=== PATIENT | male | born 2000 | race Caucasian/White ===

== ENCOUNTER 2019-12-18 05:00 | Emergency (ER) | payer SELFPAY ==
[2019-12-18] MEDS ORDERED: Sodium Chloride 0.9% 10 ML SDV IV PRN (05:12)
[2019-12-18] MEDS ORDERED: Sodium Chloride 0.9% 10 ML Syringe FLUSH PRN (05:12)
[2019-12-18] MEDS ORDERED: Sodium Chloride 0.9% 2.5 ML Syringe FLUSH PRN (05:12)
[2019-12-18] MEDS ORDERED: Lactated Ringers 1,000 ML IV ONE ×2 (05:20→06:13)
--- NOTE | 2019-12-18 05:33 | EDM.PDOC ---
ED HPI GENERAL MEDICAL PROBLEM - General Source of Information: Reports: Police History Limitations: Reports: Altered Mental Status <Luther Alexandre - Last Filed: 12/18/19 07:02> <Eliu Amaya - Last Filed: 12/18/19 07:35> - General Chief Complaint: General Stated Complaint: MED. CLEARANCE Time Seen by Provider: 12/18/19 05:03 - History of Present Illness INITIAL COMMENTS - FREE TEXT/NARRATIVE: This patient is a 19-year-old male with an unknown past medical history presenting with altered mental status. He presents to the emergency department in custody of law enforcement. Police state that they were called to a residence where the patient was found banging on the door of a residence that he did not live at He was unable to tell the police where he was or what he was doing so he was brought to the emergency department for medical clearance. Here in the emergency department, the patient exhibits slurred speech and denies any complaints but is disoriented and exhibits altered mental status. He is unable to participate in the HPI due to altered mental status. (Luther Alexandre) - Related Data Allergies Allergy/AdvReac Type Severity Reaction Status Date / Time Unable to Assess Allergy Unverified 12/18/19 05:11 Home Meds: Home Meds . [No Known Home Meds] 12/18/19 [History] Past Medical History - Past Health History Medical/Surgical History: Denies Medical/Surgical History (Unable to convey medical history due to altered mental status) <Luther Alexandre - Last Filed: 12/18/19 07:02> Social & Family History - Family History Family Medical History: Unobtainable <Luther Alexandre - Last Filed: 12/18/19 07:02> ED ROS GENERAL - Review of Systems Review Of Systems: Unable To Obtain Reason Not Obtained: Altered mental status <Luther Alexandre - Last Filed: 12/18/19 07:02> - Review of Systems Review Of Systems: See Below <Eliu Amaya - Last Filed: 12/18/19 07:35> - Physical Exam Exam: See Below Exam Limited By: Altered Mental Status General Appearance: Alert Eye Exam: Bilateral Eye: Normal Inspection, PERRL (Dilated at 6 mm bilaterally) Ears: Normal External Exam Nose: Normal Inspection, No Blood. No: Nasal Drainage Throat/Mouth: Normal Inspection Head Exam: Atraumatic, Normocephalic Neck: Supple Respiratory/Chest: No Respiratory Distress, No Accessory Muscle Use. No: Accessory Muscle Use Cardiovascular: No Edema, Tachycardia GI/Abdominal: No Distention (Male) Exam: Deferred Neuro Exam (Abbreviated): Alert, Confused, Disoriented, Abnormal Gait, Other ( Oriented to person only, not to place/time/event) Extremities: Normal Range of Motion Psychiatric: Other (Impulsive, exhibits poor judgment) Skin Exam: Warm, Dry <Luther Alexandre - Last Filed: 12/18/19 07:02> - Physical Exam Exam: See Below <Eliu Amaya - Last Filed: 12/18/19 07:35> EKG INTERPRETATION EKG Date: 12/18/19 Time: 05:15 Rhythm: NSR (Sinus tachycardia) Rate (Beats/Min): 143 [place]: Normal P-Wave: Present QRS: Normal ST-T: Other (TWI in III) QT: Normal Comparison: NA - No Prior EKG <Luther Alexandre - Last Filed: 12/18/19 07:02> Course <Luther Alexandre - Last Filed: 12/18/19 07:02> <Eliu Amaya - Last Filed: 12/18/19 07:35> - Vital Signs Text/Narrative:: 18-year-old male with altered mental status. Differential diagnosis includes but was not limited to alcohol intoxication, illicit drug use, head trauma, hypo -or hyperglycemia, sepsis, stroke, seizure/postictal state, electrolyte disturbance, infection, uremia, trauma, psychiatric disorder, etc. CBC shows erythrocytosis. Lactate is within normal limits, blood glucose is normal. Urine drug screen is positive for cocaine. Electrolytes are normal, mild renal insufficiency with a creatinine of 1.4. Hepatic markers are within normal limits. Troponin testing is negative. Blood alcohol level is 345 milligrams per deciliter. He was given 1 L of lactated Ringer's. 0558: Toxicology screen positive for ethanol and cocaine. Lactated Ringer's infusing. Patient still has resting tachycardia in the 130s. Will need further period of observation to ensure adequate clearance. 0641: Second bag of crystalloid infusing, still tachycardic with a heart rate in the 130s. 0700: Patient's mental status is slowly improving but he is still not oriented to place or event. Will need an additional period of time to be observed. Signed out in person to Dr. Amaya, the daytime physician. (Luther Alexandre) Last Recorded V/S: Last Vital Signs Temp 98.4 F 12/18/19 05:06 Pulse 136 H 12/18/19 06:50 Resp 21 H 12/18/19 06:50 BP 138/77 12/18/19 06:50 Pulse Ox 96 12/18/19 05:57 - Orders/Labs/Meds Orders: Active Orders 24 hr Category Date Time Status Blood Glucose Check, Bedside [] ONETIME Care 12/18/19 05:12 Active Cardiac Monitoring [] . DIRECTED Care 12/18/19 05:11 Active EKG 12 Lead [EKG Documentation Completion] [] STAT Care 12/18/19 05:12 Active Pulse Oximetry [] ASDIRECTED Care 12/18/19 05:11 Active Sodium Chloride 0.9% [Normal Saline] Med 12/18/19 05:12 Active 10 ml IV ASDIRECTED PRN Sodium Chloride 0.9% [Saline Flush] Med 12/18/19 05:12 Active 10 ml FLUSH ASDIRECTED PRN Sodium Chloride 0.9% [Saline Flush] Med 12/18/19 05:12 Active 2.5 ml FLUSH ASDIRECTED PRN Peripheral IV Insertion Adult [OM.PC] Stat Oth 12/18/19 05:12 Ordered Medication Orders Sodium Chloride (Saline Flush) 10 ml FLUSH ASDIRECTED PRN PRN Reason: Keep Vein Open Last Admin: 12/18/19 06:17 Dose: 10 ml Sodium Chloride (Saline Flush) 2.5 ml FLUSH ASDIRECTED PRN PRN Reason: Keep Vein Open Last Admin: 12/18/19 06:17 Dose: 2.5 ml Sodium Chloride (Normal Saline) 10 ml IV ASDIRECTED PRN PRN Reason: IV Use Labs: Laboratory Tests 12/18/19 12/18/19 12/18/19 Range/Units 05:25 05:25 05:25 WBC 8.02 (4.0-11.0) K/uL RBC 5.51 (4.50-5.90) M/uL Hgb 17.7 H (13.0-17.0) g/dL Hct 49.0 (38.0-50.0) % MCV 88.9 (80.0-98.0) fL MCH 32.1 H (27.0-32.0) pg MCHC 36.1 (31.0-37.0) g/dL RDW Std Deviation 41.5 (28.0-62.0) fl RDW Coeff of Joan 13 (11.0-15.0) % Plt Count 323 (150-400) K/uL MPV 9.50 (7.40-12.00) fL Neut % (Auto) 64.3 (48.0-80.0) % Lymph % (Auto) 28.6 (16.0-40.0) % Mckenzie % (Auto) 6.5 (0.0-15.0) % Eos % (Auto) 0.1 (0.0-7.0) % Baso % (Auto) 0.5 (0.0-1.5) % Neut # (Auto) 5.2 (1.4-5.7) K/uL Lymph # (Auto) 2.3 (0.6-2.4) K/uL Mckenzie # (Auto) 0.5 (0.0-0.8) K/uL Eos # (Auto) 0.0 (0.0-0.7) K/uL Baso # (Auto) 0.0 (0.0-0.1) K/uL Nucleated RBC % 0.0 /100WBC Nucleated RBCs # 0 K/uL Lactate (0.20-2.00) mmol/L Sodium 143 (136-148) mmol/L Potassium 3.7 (3.5-5.1) mmol/L Chloride 105 (98-107) mmol/L Carbon Dioxide 22.7 (21.0-32.0) mmol/L BUN 11 (7.0-18.0) mg/dL Creatinine 1.4 H (0.8-1.3) mg/dL Est Cr Clr Drug Dosing TNP Estimated GFR (MDRD) > 60.0 ml/min Glucose 145 H (74-106) mg/dL POC Glucose (60-110) mg/dL Calcium 8.5 (8.5-10.1) mg/dL Total Bilirubin 0.4 (0.2-1.0) mg/dL AST 27 (15-37) IU/L ALT 59 (14-63) IU/L Alkaline Phosphatase 72 (46-116) U/L Troponin I < 0.050 (0.000-0.056) ng/mL Total Protein 8.3 H (6.4-8.2) g/dL Albumin 4.9 (3.4-5.0) g/dL Globulin 3.4 (2.6-4.0) g/dL Albumin/Globulin Ratio 1.4 (0.9-1.6) Urine Opiates Screen (NEGATIVE) Ur Oxycodone Screen (NEGATIVE) Urine Methadone Screen (NEGATIVE) Ur Barbiturates Screen (NEGATIVE) Ur Phencyclidine Scrn (NEGATIVE) Ur Amphetamine Screen (NEGATIVE) U Methamphetamines Scrn (NEGATIVE) U Benzodiazepines Scrn (NEGATIVE) U Cocaine Metab Screen (NEGATIVE) U Marijuana (THC) Screen (NEGATIVE) Ethyl Alcohol 345 mg/dL 12/18/19 12/18/19 12/18/19 Range/Units 05:25 05:32 05:42 WBC (4.0-11.0) K/uL RBC (4.50-5.90) M/uL Hgb (13.0-17.0) g/dL Hct (38.0-50.0) % MCV (80.0-98.0) fL MCH (27.0-32.0) pg MCHC (31.0-37.0) g/dL RDW Std Deviation (28.0-62.0) fl RDW Coeff of Joan (11.0-15.0) % Plt Count (150-400) K/uL MPV (7.40-12.00) fL Neut % (Auto) (48.0-80.0) % Lymph % (Auto) (16.0-40.0) % Mckenzie % (Auto) (0.0-15.0) % Eos % (Auto) (0.0-7.0) % Baso % (Auto) (0.0-1.5) % Neut # (Auto) (1.4-5.7) K/uL Lymph # (Auto) (0.6-2.4) K/uL Mckenzie # (Auto) (0.0-0.8) K/uL Eos # (Auto) (0.0-0.7) K/uL Baso # (Auto) (0.0-0.1) K/uL Nucleated RBC % /100WBC Nucleated RBCs # K/uL Lactate 1.5 (0.20-2.00) mmol/L Sodium (136-148) mmol/L Potassium (3.5-5.1) mmol/L Chloride (98-107) mmol/L Carbon Dioxide (21.0-32.0) mmol/L BUN (7.0-18.0) mg/dL Creatinine (0.8-1.3) mg/dL Est Cr Clr Drug Dosing Estimated GFR (MDRD) ml/min Glucose (74-106) mg/dL POC Glucose 106 (60-110) mg/dL Calcium (8.5-10.1) mg/dL Total Bilirubin (0.2-1.0) mg/dL AST (15-37) IU/L ALT (14-63) IU/L Alkaline Phosphatase (46-116) U/L Troponin I (0.000-0.056) ng/mL Total Protein (6.4-8.2) g/dL Albumin (3.4-5.0) g/dL Globulin (2.6-4.0) g/dL Albumin/Globulin Ratio (0.9-1.6) Urine Opiates Screen NEGATIVE (NEGATIVE) Ur Oxycodone Screen NEGATIVE (NEGATIVE) Urine Methadone Screen NEGATIVE (NEGATIVE) Ur Barbiturates Screen NEGATIVE (NEGATIVE) Ur Phencyclidine Scrn NEGATIVE (NEGATIVE) Ur Amphetamine Screen NEGATIVE (NEGATIVE) U Methamphetamines Scrn NEGATIVE (NEGATIVE) U Benzodiazepines Scrn NEGATIVE (NEGATIVE) U Cocaine Metab Screen POSITIVE (NEGATIVE) U Marijuana (THC) Screen NEGATIVE (NEGATIVE) Ethyl Alcohol mg/dL Meds: Medications Generic Name Dose Route Start Last Admin Trade Name Freq PRN Reason Stop Dose Admin Sodium Chloride 10 ml 12/18/19 05:12 12/18/19 06:17 Saline Flush FLUSH 10 ml ASDIRECTED PRN Administration Keep Vein Open Sodium Chloride 2.5 ml 12/18/19 05:12 12/18/19 06:17 Saline Flush FLUSH 2.5 ml ASDIRECTED PRN Administration Keep Vein Open Sodium Chloride 10 ml 12/18/19 05:12 Normal Saline IV ASDIRECTED PRN IV Use Discontinued Medications Generic Name Dose Route Start Last Admin Trade Name Freq PRN Reason Stop Dose Admin Lactated Ringer's 1,000 mls @ 1,000 mls/hr 12/18/19 05:20 12/18/19 05:25 Ringers, Lactated IV 12/18/19 06:19 1,000 mls/hr .BOLUS ONE Administration Lactated Ringer's 1,000 mls @ 1,000 mls/hr 12/18/19 06:13 12/18/19 06:17 Ringers, Lactated IV 12/18/19 07:12 1,000 mls/hr .BOLUS ONE Administration - Re-Assessments/Exams Free Text/Narrative Re-Assessment/Exam: 12/18/19 07:34 After treatments and a prolonged observation period in the ER, the patient improved clinically and is stable for discharge. I performed a repeat examination and the patient has not demonstrated any new abnormal findings. Patient is clinically sober, alert and oriented x4, and has exhibited a normal gait. I advised the patient to return to the ER for reevaluation if symptoms worsened, and to follow up with their PCP within 2-3 days. POlice will escort him home. (Eliu Amaya) Departure <Luther Alexandre - Last Filed: 12/18/19 07:02> - Departure Time of Disposition: 07:32 Condition: Good - Discharge Information *PRESCRIPTION DRUG MONITORING PROGRAM REVIEWED*: No *COPY OF PRESCRIPTION DRUG MONITORING REPORT IN PATIENT EMILY: No <Eliu Amaya - Last Filed: 12/18/19 07:35> - Departure Disposition: Home, Self-Care 01 Clinical Impression: Alcohol abuse, Drug abuse - Discharge Information Instructions: Chemical Dependency, Alcohol Intoxication, [id number], What You Need to Know About Alcohol Abuse and Dependence, Adult, Finding Treatment for Addiction Referrals: PCP,None [Primary Care Provider] - Forms: ED Department Discharge Additional Instructions: The following information is given to patients seen in the emergency department who are being discharged to home. This information is to outline your options for follow-up care. We provide all patients seen in our emergency department with a follow-up referral. The need for follow-up, as well as the timing and circumstances, are variable depending upon the specifics of your emergency department visit. If you don't have a primary care physician on staff, we will provide you with a referral. We always advise you to contact your personal physician following an emergency department visit to inform them of the circumstance of the visit and for follow-up with them and/or the need for any referrals to a consulting specialist. The emergency department will also refer you to a specialist when appropriate. This referral assures that you have the opportunity for follow-up care with a specialist. All of these measure are taken in an effort to provide you with optimal care, which includes your follow-up. Under all circumstances we always encourage you to contact your private physician who remains a resource for coordinating your care. When calling for follow-up care, please make the office aware that this follow-up is from your recent emergency room visit. If for any reason you are refused follow-up, please contact the [facility] Department at and asked to speak to the emergency department charge nurse. [facility] [address] [place] [address] [place] [address] Sepsis Event Note - Evaluation Sepsis Screening Result: No Definite Risk - Focused Exam Date Exam was Performed: 12/18/19 Time Exam was Performed: 07:02 <Luther Alexandre - Last Filed: 12/18/19 07:02> - Focused Exam Date Exam was Performed: 12/18/19 Time Exam was Performed: 07:32 <Eliu Amaya - Last Filed: 12/18/19 07:35> - Focused Exam Vital Signs: Vital Signs Temp Pulse Resp BP Pulse Ox 12/18/19 06:50 136 H 21 H 138/77 12/18/19 05:57 139 H 26 H 140/74 96 12/18/19 05:06 98.4 F 150 H 16 151/91 H 94 L
[2019-12-18 05:53] LABS: BLOOD UREA NITROGEN,BUN 11 mg/dL (7.0-18.0); CARBON DIOXIDE,CO2 22.7 mmol/L (21.0-32.0); CHLORIDE,CL 105 mmol/L (98-107); GLUCOSE RANDOM 145 mg/dL (74-106); POTASSIUM,K 3.7 mmol/L (3.5-5.1); SODIUM,NA 143 mmol/L (136-148)
== END 2019-12-18 07:41 | disposition home or self-care (01) ==
LOC: MW.ED 05:00
DX: F10.10 Alcohol abuse, uncomplicated (principal); F14.10 Cocaine abuse, uncomplicated; Y90.8 Blood alcohol level of 240 mg/100 ml or more
CPT/HCPCS: 36415; 80053; 80305; 80307; 82962; 83605; 84484; 85025; 93005; 96360; 96361; 99285; J7120